=== PATIENT | female | born 1955 | race Caucasian/White ===

== ENCOUNTER 2021-04-13 16:45 | Inpatient (IN) | payer MEDICARE, OTHER ==
[~2021-04-13] VITALS: Ht 165.1 cm; Wt 70.2 kg
[2021-04-13] MEDS ORDERED: BACITRACIN TOPICAL OINT PACKET. TP ONE (18:00)
[2021-04-13] MEDS ORDERED: DIPHTH,PERTUSS(ACELL),TET TOX 0.5 ML DISP.SYRIN. VAX IM ONE (18:00)
--- NOTE | 2021-04-13 18:16 | PHYS DOC ---
Past Medical History Past Surgical History: No Surgical History General Adult EDM: Chief Complaint: MECHANICAL FALL HPI: HPI: Patient is a 65-year-old female who presents to the emergency department complaining of face pain after a trip and fall approximately 1 hour prior to arrival. Patient states [place] she tripped over a piece of metal sticking out of the ground falling and striking her face on the concrete. Patient states she became dazed but does not believe she lost consciousness, patient sister at bedside who witnessed the event reports patient did not lose consciousness. Patient complains of forehead pain, nose pain, upper lip pain. Did not take any pain medication prior to arrival to the emergency department. Reports a 3 out of 10 pain/discomfort. Reports her last tetanus immunization was greater than 5 years ago. Patient denies visual disturbances, syncopal or near syncopal episodes, denies neck pain, denies chest pains or shortness of breath, denies chest palpitations. Patient denies nasal or chest congestion. Patient does report left knee discomfort, denies other injuries to her body, denies other physical complaints or physical concerns. Patient reports she takes lisinopril 10 mg for hypertension, 75 mcg of levothy roxine for hypothyroidism. Review of Systems: Review of Systems: 14 body systems of review of systems have been reviewed. See HPI for pertinent positives and negative responses, otherwise all other systems are negative, no npertinent or noncontributory. Constitutional: Negative except as outlined in HPI above. Skin: Negative except as outlined in HPI above. Eyes: Negative except as outlined in HPI above. HENT: Negative except as outlined in HPI above. Respiratory: Negative except as outlined in HPI above. Cardiovascular: Negative except as outlined in HPI above. GI: Negative except as outlined in HPI above. : Negative except as outlined in HPI above. Musculoskeletal: Negative except as outlined in HPI above. Integument: Negative except as outlined in HPI above. Neurologic: Negative except as outlined in HPI above. Endocrine: Negative except as outlined in HPI above. Lymphatic: Negative except as outlined in HPI above. Psychiatric: Negative except as outlined in HPI above. Heart Score: C/O Chest Pain: No Risk Factors: Risk Factors: DM, Current or recent (<one month) smoker, HTN, HLP, family history of CAD, obesity. Risk Scores: Score 0 - 3: 2.5% MACE over next 6 weeks - Discharge Home Score 4 - 6: 20.3% MACE over next 6 weeks - Admit for Clinical Observation Score 7 - 10: 72.7% MACE over next 6 weeks - Early Invasive Strategies Current Medications: Current Medications Medications (Trade) Dose Ordered Sig/Venkatesh Start Time Stop Time Status Last Admin Dose Admin Bacitracin (Bacitracin Zinc Oint Pkt) 1 pkt 1X ONCE 04/13/21 18:00 04/13/21 18:01 DC 04/13/21 18:00 1 PKT Diphtheria/ Tetanus/Acell Pertussis (Boostrix) 0.5 ml ONCE ONCE 04/13/21 18:00 04/13/21 18:01 DC 04/13/21 18:02 0.5 ML Allergies: Allergies: Allergies Coded Allergies Type Severity Reaction Last Updated Verified No Known Drug Allergies 04/13/21 No Physical Exam: PE: Constitutional: Well developed, well nourished, no acute distress, non-toxic appearance. 65-year-old female holding ice packs to her face otherwise in no apparent distress. HENT: Normocephalic, there is a contusion to the right forehead just superior to brow with abrasion, abrasion with swelling to bridge of nose, bilateral nasal turbinates are swollen, no drainage or bleeding appreciated, the upper lip has abrasion and is swollen, there is a laceration 0.4 mm to the upper lip center, does not cross the vermilion border, no bleeding appreciated, the teeth are not broken, there is no malocclusion, patient is speaking in normal voice tones, no drooling, no trismus, bilateral TMs are intact and within normal limits, no raccoon eyes, no starr's sign. Eyes: Conjunctiva normal, no discharge. PERRLA, satisfactory 6 cardinal eye movements. Neck: Normal range of motion, no stridor. There is no C-spine pain, no pain to the muscular structures of the neck. Cardiovascular: No cyanosis appreciated, distal cap refill less than 2 seconds. Regular rate and rhythm, heart sounds S1-S2. Lungs & Thorax: Patient is in no respiratory distress, lung sounds are clear to auscultation all lung oliva. Abdomen: Nontender, no abnormalities noted. Skin: Warm, dry, no erythema, no rash. See HEENT note for focused skin examination. Back: No tenderness, no deformities. Extremities: No tenderness, no cyanosis, no clubbing, ROM intact, no edema. There is a minor abrasion to the left anterior knee, no swelling or edema, no crepitus appreciated, full passive range of motion of knee joint. Neurologic: Alert and oriented X 3, normal motor function, normal sensory func tion, no focal deficits noted. Psychologic: Affect normal, judgement normal, mood normal. Current Patient Data: Vital Signs: Vital Signs Date Time Temp Pulse Resp B/P (MAP) Pulse Ox O2 Delivery O2 Flow Rate FiO2 04/13/21 17:01 98.0 101 20 184/88 (120) 95 Room Air 98.0 EKG: EKG: [] Radiology/Procedures: Radiology/Procedures: REASON: Fall, facial trauma PROCEDURE: CT HEAD AND MAXILLOFACIAL WO Exam: CT head, maxillofacial and cervical spine INDICATION: Fall, facial trauma TECHNIQUE: Sequential axial images through the head, face and cervical spine were obtained without the administration of IV contrast. Exposure: One or more of the following in the visualized dose reduction techniques were utilized for this examination: 1. Automated exposure control 2. Adjustment of the MA and/or KV according to patient size 3. Use of iterative of reconstructive technique Comparisons: None FINDINGS: Head: Subtle hyperdensity adjacent to the midline falx anteriorly between the frontal lobe seen on series 2 image 14. No focal parenchymal lesion or hemorrhage is identified. There is no midline shift or sulcal effacement. No acute vascular territory infarction is identified. Davidson-white distinction is preserved. The ventricular system is within normal limits without compression hydrocephalus. The basal cisterns are well maintained. Face: The visualized portions of the paranasal sinuses and mastoid air cells are well- pneumatized. Bilateral nasal bone fractures are noted. Extra cranial soft tissue scalp contusion overlying the right frontal region. Globes and intraorbital contents are normal. Cervical spine: Mild reversal of normal cervical lordosis positional. Vertebral body heights are well-maintained. Fracture through the cervical spine is not identified. Multilevel spondylotic change in cervical spine with degenerative disc disease greatest at C4-C5, C5-C6 and C6-C7. Visualized paraspinal soft tissues are unremarkable. IMPRESSION: 1. Trace subdural hematoma along the falx anteriorly between the frontal lobes. No significant mass effect. 2. Extra cranial soft tissue scalp contusion overlying the right frontal region. 3. Bilateral nasal bone fractures. 4. Negative CT C-spine for acute traumatic injury. FOR INTERNAL CODING PURPOSES Critical result: Findings discussed with AKASH MARTIN APRN at 04/13/2021 6:21 PM. RESULT CODE: (C) Electronically signed by: Mendez Aviles MD (04/13/2021 6:23 PM) [facility] Course & Med Decision Making: Course & Med Decision Making Pertinent Labs and Imaging studies reviewed. (See chart for details) 65-year-old female, vital signs reviewed, presents to the emergency department concerning trip and fall hitting her face on the concrete. Per witnesses naheed ent did not lose consciousness however does not remember certain events after striking her face on the ground. Physical examination concerning for closed head injury, fractures of facial bones, will order CT head, C-spine, maxillofacial bones, ice pack to face, will bring patient's tetanus immunization up-to-date today in the emergency department, will cleanse abrasions and apply bacitracin ointment. CT imaging interpreted by house radiologist concerning for subdural hematoma of the frontal lobes without mass-effect, soft tissue scalp contusion of the right frontal region, bilateral nasal bone fractures, is negative for C-spine acute injury. Discussed findings with patient, recommended admission to the hospital for hospitalist and neurosurgical consult, patient is amenable to this planning. Patient continues to 3 out of 10 pain, denies need for pain medication, discussed recommendations to suture lip laceration, patient has refused this saying it will heal on its own. Called and discussed patient case and ED work-up with Dr. Hernandez nurse practitioner Na who recommends patient be admitted to the ICU, every 4 hours neuro checks, repeat CT in a.m., will consult for admission under hospitalist. Called and discussed patient case and ED work-up with inpatient management physician Dr. Kinsey who agrees patient case warrants admission to the hospital, reviewed neurosurgery recommendations, patient is currently awaiting ICU room assignment from smokehouse operator, patient remains neurovascular intact, alert and oriented x3, vital signs are within normal limits. Dragon Disclaimer: Dragon Disclaimer: This electronic medical record was generated, in whole or in part, using a voice recognition dictation system. Departure Departure Impression: Primary Impression: Subdural hematoma Additional Impressions: Closed head injury Qualified Codes: S09.90XA - Unspecified injury of head, initial encounter Nasal bone fracture Qualified Codes: S02.2XXA - Fracture of nasal bones, initial encounter for closed fracture Forehead contusion Qualified Codes: S00.83XA - Contusion of other part of head, initial encounter Nasal contusion Qualified Codes: S00.33XA - Contusion of nose, initial encounter Facial abrasion Qualified Codes: S00.81XA - Abrasion of other part of head, initial encounter Laceration of upper lip with complication Qualified Codes: S01.511A - Laceration without foreign body of lip, initial encounter Disposition: 09 ADMITTED INPATIENT Admitting Physician: LINDA (Admit to Dr. Kinsey, neurosurgery Dr. Norwood consult.) Condition: GUARDED MANDIEAKASH CHAVEZ Omari MURILLO Apr 13, 2021 18:16
--- NOTE | 2021-04-13 18:25 | RAD ---
Exam: CT head, maxillofacial and cervical spine INDICATION: Fall, facial trauma TECHNIQUE: Sequential axial images through the head, face and cervical spine were obtained without th e administration of IV contrast. Exposure: One or more of the following in the visualized dose reduction techniques were utilized for this examination: 1. Automated exposure control 2. Adjustment of the MA and/or KV according to patient size 3. Use of iterative of reconstructive technique Comparisons: None FINDINGS: Head: Subtle hyperdensity adjacent to the midline falx anteriorly between the frontal lobe seen on series 2 image 14. No focal parenchymal lesion or hemorrhage is identified. There is no midline shift or sulc al effacement. No acute vascular territory infarction is identified. Davidson-white distinction is preserved. The ventricular system is within normal limits without compression hydrocephalus. The basal cisterns are well maintained. Face: The visualized portions of the paranasal sinuses and mastoid air cells are well-pneumatized. Bilatera l nasal bone fractures are noted. Extra cranial soft tissue scalp contusion overlying the right front al region. Globes and intraorbital contents are normal. Cervical spine: Mild reversal of normal cervical lordosis positional. Vertebral body heights are well-maintained. Fracture through the cervical spine is not identified. Multilevel spondylotic change in cervical spine with degenerative disc disease greatest at C4-C5, C5- C6 and C6-C7. Visualized paraspinal soft tissues are unremarkable. IMPRESSION: 1. Trace subdural hematoma along the falx anteriorly between the frontal lobes. No significant mass effect. 2. Extra cranial soft tissue scalp contusion overlying the right frontal region. 3. Bilateral nasal bone fractures. 4. Negative CT C-spine for acute traumatic injury. FOR INTERNAL CODING PURPOSES Critical result: Findings discussed with AKASH MARTIN APRN at 04/13/2021 6:21 PM. RESULT CODE: (C) Electronically signed by: Mendez Aviles MD (04/13/2021 6:23 PM) [facility]
[2021-04-13] MEDS ORDERED: ACETAMINOPHEN 325 MG TABLET. PO PRN (19:00)
[2021-04-13 19:13] LABS: BASO % 0 % (0-3); EOS % 0 % (0-3); HEMATOCRIT 42.9 % (36.0-47.0); HEMOGLOBIN 14.1 g/dL (12.0-15.5); LYMPH # 1.6 x10^3/uL (1.0-4.8); LYMPH % 13 % (24-48); MEAN CORPUSCULAR HEMOGLOBIN 30 pg (25-35); MEAN CORPUSCULAR HGB CONC 33 g/dL (31-37); MEAN CORPUSCULAR VOLUME 92 fL (79-100); MONO # 0.4 x10^3/uL (0.0-1.1); MONO % 4 % (0-9); NEUT % 83 % (31-73); PLATELET COUNT 281 x10^3/uL (140-400); RED BLOOD COUNT 4.65 x10^6/uL (3.50-5.40); WHITE BLOOD COUNT 12.1 x10^3/uL (4.0-11.0)
[2021-04-13 19:23] LABS: CALCIUM 9.6 mg/dL (8.5-10.1); CREATININE 0.8 mg/dL (0.6-1.0); POTASSIUM 3.8 mmol/L (3.5-5.1); PROTHROMBIN TIME PATIENT 12.5 SEC (11.7-14.0)
[2021-04-13 19:29] LABS: ALBUMIN 4.7 g/dL (3.4-5.0); ALBUMIN/GLOBULIN RATIO 1.4 (1.0-1.7); TOTAL BILIRUBIN 0.4 mg/dL (0.2-1.0); TOTAL PROTEIN 8.1 g/dL (6.4-8.2)
[2021-04-13] MEDS ORDERED: MORPHINE SULFATE 4 MG/ML INJ. IVP ONE (20:15)
[2021-04-13] MEDS ORDERED: ONDANSETRON PF 4 MG/2 ML VIAL. IVP ONE (20:15)
[2021-04-13 21:45] VITALS: BP 117/64
[2021-04-13] MEDS ORDERED: LISI10TA16 PO (21:49)
[2021-04-13] MEDS ORDERED: LEVO75TA5 PO (21:49)
[2021-04-13] MEDS ORDERED: PROG200C10 PO (21:49)
[2021-04-13 22:00] VITALS: BP 132/72
[2021-04-13 22:15] VITALS: BP 110/69
[2021-04-13] MEDS: MORPHINE SULFATE 2 MG/ML INJ. IV PRN (22:28)
[2021-04-13 22:30] VITALS: BP 117/69
[2021-04-13 23:00] VITALS: BP 100/55
--- NOTE | 2021-04-13 23:19 | NUR ---
PT ADMITTED TO [facility] 112 FOR SUBDURAL HEMATOMA. ADMITTED TO DR REY, NEUROSURGERY- MADISYN NEURO PROPERTY ADJUSTER AWARE OF PT ADMISSION. PT S/P FALL AT POST OFFICE, SAYS THAT SHE LOST BRIEF CONSCIOUSNESS BUT WOKE UP AND JUST SLIGHTLY DISORIENTED. UPON ARRIVAL TO ICU, PT A&OX4, AMBULATED INDEPENDENTLY TO BED. EXTENSIVE BRUISING/SWELLING NOTED TO FACIAL REGION, PT STATES 4/10 PAIN. MORPHINE IV GIVEN WITH IMPROVEMENT. ASSESSMENT/ADMISSION COMPLETED, HOME MEDS ENTERED- EXPLAINED TO PT WILL MONITOR HER OVERNIGHT AND REPEAT HEAD CT IN THE AM. SHE IS CURRENTLY RESTING PEACEFULLY, ALL VSS.
[2021-04-13 23:47] VITALS: BP 89/48
[2021-04-14] VITALS (9 sets, daily range): BP systolic 87–134; BP diastolic 52–74
[2021-04-14] MEDS: MORPHINE SULFATE 2 MG/ML INJ. IV PRN (00:30)
[2021-04-14] MEDS ORDERED: MUPIROCIN 2 % OINTMENT 22GM TUBE. TP PRN (00:45)
[2021-04-14] MEDS ORDERED: hydrALAZINE 20 MG/ML VIAL. IVP PRN (07:15)
[2021-04-14] MEDS ORDERED: ACETAMINOPHEN 325 MG TABLET. PO PRN (07:15)
[2021-04-14] MEDS ORDERED: traMADol 50 MG TABLET PO PRN (07:15)
[2021-04-14] MEDS ORDERED: fentaNYL PF VIAL 100 MCG/2 ML VIAL IVP PRN (07:15)
[2021-04-14] MEDS ORDERED: ONDANSETRON PF 4 MG/2 ML VIAL. IVP PRN (07:15)
--- NOTE | 2021-04-14 07:16 | PDOC1 ---
History and Physical Date of Admission Date of Admission DATE: 04/14/21 TIME: 07:08 Identification/Chief Complaint Chief Complaint Fall Source Source: Caregiver, Patient History of Present Illness History of Present Illness Ms Miguel is a 65yo female with PMHx HTN, hypothyroidism who comes into the ED via private vehicle on 04/13/2021 after tripping over a piece of metal on the sidewalk in front of a post office striking her head on the concrete. She did lose consciousness and was dazed, was accompanied by her sister, who she called after the episode. She was caring her person when handling a package of the other and notes for at least 30 min she was confused after the episode doesn't know how long she lost consciousness. Pain initially was 3/10, c/o scalp, nasal and facial pain. No numbness or tingling. No loss of motor function. No cardiac history. She had been taking aspirin until 3 days prior to coming to the ED because she recently read without history of CAD there is no benefit in a spirin. 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 WBC 12.1, Hb 14, platelets 281, NA 142, K3.8, BUN 22, CR 0.8, glucose 107, albumin 4.7, LFTs within normal laboratory limits, INR 0.9, PTT 29. CT cervical spine no acute abnormalities, CT head with bilateral nasal bone fractures and right frontal extracranial scalp contusion as well as trace chew bdural hematoma between bilateral frontal lobes no mass-effect. Admitted to ICU for further care Past Medical History Cardiovascular: HTN Endocrine: Hypothyroidism Past Surgical History Past Surgical History: No pertinent history Family History Family History: Hypertension Social History Smoke: No ALCOHOL: none Drugs: None Current Problem List Problem List Problems Medical Problems: (1) Closed head injury Status: Acute (2) Facial abrasion Status: Acute (3) Forehead contusion Status: Acute (4) Laceration of upper lip with complication Status: Acute (5) Nasal bone fracture Status: Acute (6) Nasal contusion Status: Acute (7) Subdural hematoma Status: Acute Current Medications Current Medications Current Medications Diphtheria/ Tetanus/Acell Pertussis (Boostrix) 0.5 ml ONCE ONCE VAX IM Last administered on 04/13/21at 18:02; Start 04/13/21 at 18:00; Stop 04/13/21 at 18:01; Status DC Bacitracin (Bacitracin Zinc Oint Pkt) 1 pkt 1X ONCE TP Last administered on 04/13/21at 18:00; Start 04/13/21 at 18:00; Stop 04/13/21 at 18:01; Status DC Acetaminophen (Tylenol) 650 mg PRN Q4HRS PRN PO FEVER > 100.3'F Last administered on 04/14/21at 06:16; Start 04/13/21 at 19:00; Stop 04/14/21 at 18:59 Ondansetron HCl (Zofran) 4 mg 1X ONCE IVP Last administered on 04/13/21at 20:13; Start 04/13/21 at 20:15; Stop 04/13/21 at 20:16; Status DC Morphine Sulfate (Morphine Sulfate) 4 mg 1X ONCE IVP Last administered on 03/21 07/08at 20:13; Start 04/13/21 at 20:15; Stop 04/13/21 at 20:16; Status DC Morphine Sulfate (Morphine Sulfate) 2 mg PRN Q2HR PRN IV SEVERE PAIN 7-10 Last administered on 04/14/21at 00:30; Start 04/13/21 at 22:00 Mupirocin (Bactroban) 1 alex PRN BID PRN TP INFECTION; Start 04/14/21 at 00:45 Active Scripts Active Reported Progesterone (Progesterone,Micronized) 200 Mg Capsule 1 Cap PO QHS 30 Days Lisinopril 10 Mg Tablet 1 Tab PO DAILY Levothyroxine Sodium 75 Mcg Tablet 1 Tab PO DAILY Allergies Allergies: Coded Allergies: No Known Drug Allergies (Unverified , 04/13/21) ROS General: YES: Fatigue, Malaise; No: Chills, Night Sweats, Appetite, Other PSYCHOLOGICAL ROS: YES: Disorientation; No: Anxiety, Behavioral Disorder, Concentration difficultie, Decreased libido, Depression, Hallucinations, Hostility, Irritablity, Memory difficulties, Mood Swings, Obsessive thoughts, Physical abuse, Sexual abuse, Sleep disturbances, Suicidal ideation, Other Eyes: Yes Eye Pain; No Blurry vision, No Decreased vision, No Double vision, No Dry eyes, No Excessive tearing, No Itchy Eyes, No Loss of vision, No Photophobia, No Scotomata, No Uses contacts, No Uses glasses, No Other HEENT: YES: Heacaches, Sinus pain, Epistaxis; No: Visual Changes, Hearing change, Nasal congestion, Nasal discharge, Oral lesions, Sore Throat, Sneezing, Snoring, Tinnitus, Vertigo, Vocal changes, Other ALLERGY AND IMMUNOLOGY: No: Hives, Insect Bite Sensitivity, Itchy/Watery Eyes, Nasal Congestion, Post Nasal Drip, Seasonal Allergies, Other Hematological and Lymphatic: No: Bleeding Problems, Blood Clots, Blood Transfusions, Brusing, Night Sweats, Pallor, Swollen Lymph Nodes, Other ENDOCRINE: No: Breast Changes, Galactorrhea, Hair Pattern Changes, Hot Flashes, Malaise/lethargy, Mood Swings, Palpitations, Polydipsia/polyuria, Skin Changes, Temperature Intolerance, Unexpected Weight Changes, Other Breast: No New/Changing Breast Lumps, No Nipple changes, No Nipple discharge, No Other Respiratory: No: Cough, Hemoptysis, Orthopnea, Pleuritic Pain, Shortness of breath, SOB with excertion, Sputum Changes, Stridor, Tachypnea, Wheezing, Other Cardiovascular: No Chest Pain, No Palpitations, No Orthopnea, No Paroxysmal Noc. Dyspnea, No Edema, No Lt Headedness, No Other Gastrointestinal: No Nausea, No Vomiting, No Abdominal Pain, No Diarrhea, No Constipation, No Melena, No Hematochezia, No Other Genitourinary: No Dysuria, No Frequency, No Incontinence, No Hematuria, No Retention, No Discharge, No Urgency, No Pain, No Flank Pain, No Other, No , No , No , No , No , No , No Musculoskeletal: No Gait Disturbance, No Joint Pain, No Joint Stiffness, No Joint Swelling, No Muscle Pain, No Muscular Weakness, No Pain In:, No Swelling In:, No Other Neurological: No Behavorial Changes, No Bowel/Bladder ControlChng, No Confusion, No Dizziness, No Gait Disturbance, No Headaches, No Impaired Coord/balance, No Memory Loss, No Numbness/Tingling, No Seizures, No Speech Problems, No Tremors, No Visual Changes, No Weakness, No Other Skin: No Dry Skin, No Eczema, No Hair Changes, No Lumps, No Mole Changes, No Mottling, No Nail Changes, No Pruritus, No Rash, No Skin Lesion Changes, No Other, No Acne Physical Exam General: Alert, Oriented X3, Cooperative, mild distress HEENT: PERRLA, EOMI, Mucous membr. moist/pink, Other (Right frontal scalp hematoma. Bilateral infraorbital ecchymoses swollen nasal bone mild displacement to right. Right-sided chin abrasion.) Lungs: Clear to auscultation, Normal air movement Heart: S1S2, RRR, no thrills, no rubs, no gallops, no murmurs Abdomen: Normal bowel sounds, Soft, No tenderness, No hepatosplenomegaly, No masses Rectal Exam: not examined Extremities: No clubbing, No cyanosis, No edema, Normal pulses, Other (left 5th finger pain, swelling) Skin: Other (Right frontal scalp hematoma. Bilateral infraorbital ecchymoses swollen nasal bone mild displacement to right. Right-sided chin abrasion.) Neuro: Normal gait, Normal speech, Strength at 5/5 X4 ext, Normal tone, Sensation intact, Cranial nerves 3-12 NL, Reflexes 2+ Vitals Vitals Vital Signs Date Time Temp Pulse Resp B/P (MAP) Pulse Ox O2 Delivery O2 Flow Rate FiO2 04/14/21 06:00 75 20 118/63 (81) 96 Room Air 04/14/21 04:00 98.5 98.5 Labs Labs Laboratory Tests Test 04/13/21 19:00 White Blood Count 12.1 x10^3/uL (4.0-11.0) Red Blood Count 4.65 x10^6/uL (3.50-5.40) Hemoglobin 14.1 g/dL (12.0-15.5) Hematocrit 42.9 % (36.0-47.0) Mean Corpuscular Volume 92 fL (79-100) Mean Corpuscular Hemoglobin 30 pg (25-35) Mean Corpuscular Hemoglobin Concent 33 g/dL (31-37) Red Cell Distribution Width 13.0 % (11.5-14.5) Platelet Count 281 x10^3/uL (140-400) Neutrophils (%) (Auto) 83 % (31-73) Lymphocytes (%) (Auto) 13 % (24-48) Monocytes (%) (Auto) 4 % (0-9) Eosinophils (%) (Auto) 0 % (0-3) Basophils (%) (Auto) 0 % (0-3) Neutrophils # (Auto) 10.0 x10^3/uL (1.8-7.7) Lymphocytes # (Auto) 1.6 x10^3/uL (1.0-4.8) Monocytes # (Auto) 0.4 x10^3/uL (0.0-1.1) Eosinophils # (Auto) 0.0 x10^3/uL (0.0-0.7) Basophils # (Auto) 0.0 x10^3/uL (0.0-0.2) Prothrombin Time 12.5 SEC (11.7-14.0) Prothromb Time International Ratio 0.9 (0.8-1.1) Activated Partial Thromboplast Time 29 SEC (24-38) Sodium Level 142 mmol/L (136-145) Potassium Level 3.8 mmol/L (3.5-5.1) Chloride Level 103 mmol/L (98-107) Carbon Dioxide Level 25 mmol/L (21-32) Anion Gap 14 (6-14) Blood Urea Nitrogen 22 mg/dL (7-20) Creatinine 0.8 mg/dL (0.6-1.0) Estimated GFR (Cockcroft-Gault) 72.0 BUN/Creatinine Ratio 28 (6-20) Glucose Level 107 mg/dL (70-99) Calcium Level 9.6 mg/dL (8.5-10.1) Total Bilirubin 0.4 mg/dL (0.2-1.0) Aspartate Amino Transf (AST/SGOT) 15 U/L (15-37) Alanine Aminotransferase (ALT/SGPT) 21 U/L (14-59) Alkaline Phosphatase 63 U/L (46-116) Total Protein 8.1 g/dL (6.4-8.2) Albumin 4.7 g/dL (3.4-5.0) Albumin/Globulin Ratio 1.4 (1.0-1.7) Laboratory Tests Test 04/13/21 19:00 White Blood Count 12.1 x10^3/uL (4.0-11.0) Red Blood Count 4.65 x10^6/uL (3.50-5.40) Hemoglobin 14.1 g/dL (12.0-15.5) Hematocrit 42.9 % (36.0-47.0) Mean Corpuscular Volume 92 fL (79-100) Mean Corpuscular Hemoglobin 30 pg (25-35) Mean Corpuscular Hemoglobin Concent 33 g/dL (31-37) Red Cell Distribution Width 13.0 % (11.5-14.5) Platelet Count 281 x10^3/uL (140-400) Neutrophils (%) (Auto) 83 % (31-73) Lymphocytes (%) (Auto) 13 % (24-48) Monocytes (%) (Auto) 4 % (0-9) Eosinophils (%) (Auto) 0 % (0-3) Basophils (%) (Auto) 0 % (0-3) Neutrophils # (Auto) 10.0 x10^3/uL (1.8-7.7) Lymphocytes # (Auto) 1.6 x10^3/uL (1.0-4.8) Monocytes # (Auto) 0.4 x10^3/uL (0.0-1.1) Eosinophils # (Auto) 0.0 x10^3/uL (0.0-0.7) Basophils # (Auto) 0.0 x10^3/uL (0.0-0.2) Prothrombin Time 12.5 SEC (11.7-14.0) Prothromb Time International Ratio 0.9 (0.8-1.1) Activated Partial Thromboplast Time 29 SEC (24-38) Sodium Level 142 mmol/L (136-145) Potassium Level 3.8 mmol/L (3.5-5.1) Chloride Level 103 mmol/L (98-107) Carbon Dioxide Level 25 mmol/L (21-32) Anion Gap 14 (6-14) Blood Urea Nitrogen 22 mg/dL (7-20) Creatinine 0.8 mg/dL (0.6-1.0) Estimated GFR (Cockcroft-Gault) 72.0 BUN/Creatinine Ratio 28 (6-20) Glucose Level 107 mg/dL (70-99) Calcium Level 9.6 mg/dL (8.5-10.1) Total Bilirubin 0.4 mg/dL (0.2-1.0) Aspartate Amino Transf (AST/SGOT) 15 U/L (15-37) Alanine Aminotransferase (ALT/SGPT) 21 U/L (14-59) Alkaline Phosphatase 63 U/L (46-116) Total Protein 8.1 g/dL (6.4-8.2) Albumin 4.7 g/dL (3.4-5.0) Albumin/Globulin Ratio 1.4 (1.0-1.7) Images Images CT head/neck: Head: Subtle hyperdensity adjacent to the midline falx anteriorly between the frontal lobe seen on series 2 image 14. No focal parenchymal lesion or hemorrhage is identified. There is no midline shift or sulcal effacement. No acute vascular territory infarction is identified. Davidson-white distinction is preserved. The ventricular system is within normal limits without compression hydrocephalus. The basal cisterns are well maintained. Face: The visualized portions of the paranasal sinuses and mastoid air cells are well-pneumatized. Bilateral nasal bone fractures are noted. Extra cranial soft tissue scalp contusion overlying the right frontal region. Globes and intraorbital contents are normal. Cervical spine: Mild reversal of normal cervical lordosis positional. Vertebral body heights are well-maintained. Fracture through the cervical spine is not identified. Multilevel spondylotic change in cervical spine with degenerative disc disease greatest at C4-C5, C5-C6 and C6-C7. Visualized paraspinal soft tissues are unremarkable. IMPRESSION: 1. Trace subdural hematoma along the falx anteriorly between the frontal lobes. No significant mass effect. 2. Extra cranial soft tissue scalp contusion overlying the right frontal region. 3. Bilateral nasal bone fractures. 4. Negative CT C-spine for acute traumatic injury. VTE Prophylaxis Ordered VTE Prophylaxis Devices: Yes VTE Pharmacological Prophylaxi: Contraindicated Assessment/Plan Assessment/Plan Subdural hematoma - due to traumatic fall. No concern for cardiac etiology of her syncope. Small no midline shift. Neurosurgery consulted. Fall - will test gait. No cardiac history or telemetry abnormalities, this is clearly an accidental fall. Concussion - with loss of consciousness and retrograde amnesia, prolonged confusion state. Nasal bone fracture -visibly clears displaced though CT without significant findings. Will have outpatient ENT referral Forehead contusion -ice to area for pain Facial abrasion - local wound care Laceration of upper lip - local care Hypothyroidism - cont levothyroxine Hypertension - cont lisinopril FEN - regular diet PPX - SCDs FULL CODE Dispo - ICU for q4hr neuro checks. Will repeat CT head Justifications for Admission Other Justification IRAJ HERNANDEZ MD Apr 14, 2021 07:16
[2021-04-14] MEDS ORDERED: LEVOTHYROXINE 75 MCG TABLET PO SCH (08:00)
[2021-04-14] MEDS ORDERED: POLYETHYLENE GLYCOL 3350 17 GM PACKET. PO SCH (09:00)
[2021-04-14] MEDS ORDERED: LISINOPRIL 10 MG TABLET PO SCH (09:00)
--- NOTE | 2021-04-14 11:54 | PDOC ---
Provider Note Date of Service: DATE: 04/14/21 TIME: 11:51 Provider Note patient seen and examined consulted for SDH c/o mild headache normal neuro exam, echymosis in face, eyes imaging reviewed-Trace subdural hematoma along the falx anteriorly between the frontal lobes. No significant mass effect. ok to dc home, no driving will arrange for follow up CT in a week Justifications for Admission Other Justification ABIDA SUTTON MD Apr 14, 2021 11:54
--- NOTE | 2021-04-14 13:01 | NUR ---
Discharge Note: [facility] Discharge instructions and discharge home medications reviewed with Patient and a copy given. All questions have been answered and understanding verbalized. The following instructions and handouts were given: For Nasal fracture [facility] surgery - Dr. Espinosa or Kike [address], [address] [place] [address] P: Dr. Falk will contact patient for follow up CT scan. No driving until after follow up CT scan. Return to work 04/30/21 Light lifting greater than 10lbs. Full duty 05/14/21. For post-concussion syndrome Dr. Paul Singh [address] [place] [address] Education pertaining to SDH was discussed and given to patient. Discontinued lines and drains: 20g left UA with tip intact. Patient discharged to home with self care. Daughter drove patient from [facility] facility.
--- NOTE | 2021-04-14 14:23 | PDOC3 ---
Discharge Summary Visit Information Date of Admission: Apr 13, 2021 Date of Discharge: Apr 14, 2021 Admitting Diagnosis: Fall, subdural hematoma Final Diagnosis Problems Medical Problems: (1) Closed head injury Status: Acute (2) Facial abrasion Status: Acute (3) Forehead contusion Status: Acute (4) Laceration of upper lip with complication Status: Acute (5) Nasal bone fracture Status: Acute (6) Nasal contusion Status: Acute (7) Subdural hematoma Status: Acute Brief Hospital Course Allergies Allergies Coded Allergies Type Severity Reaction Last Updated Verified No Known Drug Allergies 04/13/21 No Vital Signs Vital Signs Date Time Temp Pulse Resp B/P (MAP) Pulse Ox O2 Delivery O2 Flow Rate FiO2 04/14/21 12:10 Room Air 04/14/21 11:19 73 18 99/66 (77) 98 04/14/21 08:00 98.6 98.6 Lab Results Laboratory Tests Test 04/13/21 19:00 White Blood Count 12.1 x10^3/uL (4.0-11.0) Red Blood Count 4.65 x10^6/uL (3.50-5.40) Hemoglobin 14.1 g/dL (12.0-15.5) Hematocrit 42.9 % (36.0-47.0) Mean Corpuscular Volume 92 fL (79-100) Mean Corpuscular Hemoglobin 30 pg (25-35) Mean Corpuscular Hemoglobin Concent 33 g/dL (31-37) Red Cell Distribution Width 13.0 % (11.5-14.5) Platelet Count 281 x10^3/uL (140-400) Neutrophils (%) (Auto) 83 % (31-73) Lymphocytes (%) (Auto) 13 % (24-48) Monocytes (%) (Auto) 4 % (0-9) Eosinophils (%) (Auto) 0 % (0-3) Basophils (%) (Auto) 0 % (0-3) Neutrophils # (Auto) 10.0 x10^3/uL (1.8-7.7) Lymphocytes # (Auto) 1.6 x10^3/uL (1.0-4.8) Monocytes # (Auto) 0.4 x10^3/uL (0.0-1.1) Eosinophils # (Auto) 0.0 x10^3/uL (0.0-0.7) Basophils # (Auto) 0.0 x10^3/uL (0.0-0.2) Prothrombin Time 12.5 SEC (11.7-14.0) Prothromb Time International Ratio 0.9 (0.8-1.1) Activated Partial Thromboplast Time 29 SEC (24-38) Sodium Level 142 mmol/L (136-145) Potassium Level 3.8 mmol/L (3.5-5.1) Chloride Level 103 mmol/L (98-107) Carbon Dioxide Level 25 mmol/L (21-32) Anion Gap 14 (6-14) Blood Urea Nitrogen 22 mg/dL (7-20) Creatinine 0.8 mg/dL (0.6-1.0) Estimated GFR (Cockcroft-Gault) 72.0 BUN/Creatinine Ratio 28 (6-20) Glucose Level 107 mg/dL (70-99) Calcium Level 9.6 mg/dL (8.5-10.1) Total Bilirubin 0.4 mg/dL (0.2-1.0) Aspartate Amino Transf (AST/SGOT) 15 U/L (15-37) Alanine Aminotransferase (ALT/SGPT) 21 U/L (14-59) Alkaline Phosphatase 63 U/L (46-116) Total Protein 8.1 g/dL (6.4-8.2) Albumin 4.7 g/dL (3.4-5.0) Albumin/Globulin Ratio 1.4 (1.0-1.7) Laboratory Tests Test 04/13/21 19:00 White Blood Count 12.1 x10^3/uL (4.0-11.0) Red Blood Count 4.65 x10^6/uL (3.50-5.40) Hemoglobin 14.1 g/dL (12.0-15.5) Hematocrit 42.9 % (36.0-47.0) Mean Corpuscular Volume 92 fL (79-100) Mean Corpuscular Hemoglobin 30 pg (25-35) Mean Corpuscular Hemoglobin Concent 33 g/dL (31-37) Red Cell Distribution Width 13.0 % (11.5-14.5) Platelet Count 281 x10^3/uL (140-400) Neutrophils (%) (Auto) 83 % (31-73) Lymphocytes (%) (Auto) 13 % (24-48) Monocytes (%) (Auto) 4 % (0-9) Eosinophils (%) (Auto) 0 % (0-3) Basophils (%) (Auto) 0 % (0-3) Neutrophils # (Auto) 10.0 x10^3/uL (1.8-7.7) Lymphocytes # (Auto) 1.6 x10^3/uL (1.0-4.8) Monocytes # (Auto) 0.4 x10^3/uL (0.0-1.1) Eosinophils # (Auto) 0.0 x10^3/uL (0.0-0.7) Basophils # (Auto) 0.0 x10^3/uL (0.0-0.2) Prothrombin Time 12.5 SEC (11.7-14.0) Prothromb Time International Ratio 0.9 (0.8-1.1) Activated Partial Thromboplast Time 29 SEC (24-38) Sodium Level 142 mmol/L (136-145) Potassium Level 3.8 mmol/L (3.5-5.1) Chloride Level 103 mmol/L (98-107) Carbon Dioxide Level 25 mmol/L (21-32) Anion Gap 14 (6-14) Blood Urea Nitrogen 22 mg/dL (7-20) Creatinine 0.8 mg/dL (0.6-1.0) Estimated GFR (Cockcroft-Gault) 72.0 BUN/Creatinine Ratio 28 (6-20) Glucose Level 107 mg/dL (70-99) Calcium Level 9.6 mg/dL (8.5-10.1) Total Bilirubin 0.4 mg/dL (0.2-1.0) Aspartate Amino Transf (AST/SGOT) 15 U/L (15-37) Alanine Aminotransferase (ALT/SGPT) 21 U/L (14-59) Alkaline Phosphatase 63 U/L (46-116) Total Protein 8.1 g/dL (6.4-8.2) Albumin 4.7 g/dL (3.4-5.0) Albumin/Globulin Ratio 1.4 (1.0-1.7) Brief Hospital Course Ms Miguel is a 65yo female with PMHx HTN, hypothyroidism who comes into the ED via private vehicle on 04/13/2021 after tripping over a piece of metal on the sidewalk in front of a post office striking her head on the concrete. She did lose consciousness and was dazed, was accompanied by her sister, who she called after the episode. She was caring her person when handling a package of the other and notes for at least 30 min she was confused after the episode doesn't know how long she lost consciousness. Pain initially was 3/10, c/o scalp, nasal and facial pain. No numbness or tingling. No loss of motor function. No cardiac history. She had been taking aspirin until 3 days prior to coming to the ED because she recently read without history of CAD there is no benefit in aspirin. 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 WBC 12.1, Hb 14, platelets 281, NA 142, K3.8, BUN 22, CR 0.8, glucose 107, albumin 4.7, LFTs within normal laboratory limits, INR 0.9, PTT 29. CT cervical spine no acute abnormalities, CT head with bilateral nasal bone fractures and right frontal extracranial scalp contusion as well as trace subdural hematoma between bilateral frontal lobes no mass-effect. Admitted to ICU for further care Consults: None neurosurgery. And gait testing with physical therapy and noted some left knee instability and patient did note she may have fallen onto it. Offered radiograph of left fifth finger and outpatient referral to orthopedics for her left knee she prefers to go for outpatient physical therapy. Repeat CT head imaging reviewed with no changed in trrace subdural hematoma along the falx anteriorly between the frontal lobes. No significant mass effect. no driving. 2 weeks off work with light duty for 2 weeks upon return. Neurosurgery will arrange for follow up CT in a week Repeat physical examination HEENT: Head normocephalic, atraumatic. NECK: Supple LUNGS: Clear to auscultation. HEART: RRR, S1, S2 present, pulses intact ABDOMEN: Soft, positive bowel sounds. EXTREMITIES: Left knee with infrapatellar bruising, some instability on ambulation. (left 5th finger pain, swelling) Skin: Other (Right frontal scalp hematoma. Bilateral infraorbital ecchymoses swollen nasal bone mild displacement to right. Right-sided chin abrasion.) Neuro: Normal gait, Normal speech, Strength at 5/5 X4 ext, Normal tone, Sensation intact, Cranial nerves 3-12 NL, Reflexes 2+ Problem list: Subdural hematoma - due to traumatic fall. No concern for cardiac etiology of her syncope. Small no midline shift. Neurosurgery consulted. Fall - will test gait. No cardiac history or telemetry abnormalities, this is clearly an accidental fall. Concussion - with loss of consciousness and retrograde amnesia, prolonged confusion state. Nasal bone fracture -visibly clears displaced though CT without significant findings. Will have outpatient ENT referral Forehead contusion -ice to area for pain Facial abrasion - local wound care Laceration of upper lip - local care Hypothyroidism - cont levothyroxine Hypertension - cont lisinopril Greater than 135 minutes spent on same day admit and d/c Discharge Information Condition at Discharge: Improved Follow Up: Weeks (2) Disposition/Orders: D/C to Home Scheduled Levothyroxine Sodium (Levothyroxine Sodium) 75 Mcg Tablet, 1 TAB PO DAILY for hypothyroidism, #30 Ref 5 (Reported) Entered as Reported by: JONATHAN HARTLEY on 04/13/212148 Last Taken: 75 on 04/13/21 Last Action: Continued on 04/14/21710 by IRAJ HERNANDEZ MD Lisinopril (Lisinopril) 10 Mg Tablet, 1 TAB PO DAILY for HTN, #30 Ref 5 (Reported) Entered as Reported by: JONATHAN HARTLEY on 04/13/212148 Last Taken: Unknown Dose on 04/13/21 Last Action: Continued on 04/14/21710 by IRAJ HERNANDEZ MD Progesterone,Micronized (Progesterone) 200 Mg Capsule, 1 CAP PO QHS for . for 30 Days, #30 Ref 0 (Reported) Entered as Reported by: JONATHAN HARTLEY on 04/13/212148 Last Taken: UNKNOWN on Unknown Date & Time Last Action: New Order on 04/13/212148 by JONATHAN HARTLEY Justicifation of Admission Dx: Justifications for Admission: Justification of Admission Dx: Yes IRAJ HERNANDEZ MD Apr 14, 2021 14:23
--- NOTE | 2021-04-14 16:34 | RAD ---
CT head without contrast dated 04/14/2021 4:28 PM Comparison: 04/13/2021 CLINICAL INDICATION: Follow-up subdural hematoma. TECHNIQUE: Contiguous axial imaging of the head was performed from skull base to vertex. One or more of the following individualized dose reduction techniques were utilized for this examinat ion: 1. Automated exposure control 2. Adjustment of the mA and/or kV according to patient size 3. Use of iterative reconstruction technique. FINDINGS: Ventricles and sulci are stable. No midline shift or mass effect. There is some mild increased densit y thickening of the anterior falx, similar to somewhat improved from recent exam. No new extra-axial collection. No intraventricular hemorrhage or subarachnoid hemorrhage. No new areas of altered brain attenuation. There is a focal scalp hematoma at the right frontal region, unchanged. No apparent calvarial abnorma lity. Paranasal sinuses and mastoid air cells are clear. IMPRESSION: 1. Small subdural hematoma along the anterior falx is similar to slightly improved from prior study. No new hemorrhage or mass effect. 2. Right frontal scalp hematoma, unchanged. Electronically signed by: Kleber Cho MD (04/14/2021 4:31 PM) [facility]
[2021-04-14] MEDS ORDERED: PSYLLIUM HUSK (SUGAR FREE) 1 PKT PACKET PO SCH (21:00)
== END 2021-04-14 12:30 | disposition home or self-care (01) | DRG 84 ==
LOC: ER 16:45 → 1 WEST ICU 18:40
PROVIDERS: ADMIT Internal Medicine; ATTEND Internal Medicine
DX: S06.5X9A Traumatic subdural hemorrhage with loss of consciousness of unspecified duration, initial encounter (principal); R79.1 Abnormal coagulation profile; E03.9 Hypothyroidism, unspecified; I10 Essential (primary) hypertension; S02.2XXA Fracture of nasal bones, initial encounter for closed fracture; S01.511A Laceration without foreign body of lip, initial encounter; W22.09XA Striking against other stationary object, initial encounter; Y93.01 Activity, walking, marching and hiking; R41.2 Retrograde amnesia; W01.0XXA Fall on same level from slipping, tripping and stumbling without subsequent striking against object, initial encounter; Z82.49 Family history of ischemic heart disease and other diseases of the circulatory system; Y92.89 Other specified places as the place of occurrence of the external cause; Y99.8 Other external cause status
CPT/HCPCS: 36415; 70450; 70486; 72125; 80053; 85025; 85610; 85730; 90471; 90715; 96374; 96375; J2270; J2405; 97116-GP; 99285-25; G0378

== ENCOUNTER → 2021-04-19 | Outpatient (CLI) | payer OTHER ==
[2021-04-14 11:19] VITALS: BP 99/66
[~2021-04-19] MED LIST: LEVO75TA5 PO; LISI10TA16 PO; PROG200C10 PO
--- NOTE | 2021-04-19 16:17 | KCIC ---
EXAMINATION: CT HEAD/BRAIN WO. TECHNIQUE: Noncontrast axial images of the brain were obtained with coronal and sagittal reconstructi ons. One or more of the following radiation dose reduction techniques was used: automated exposure control , adjustment of mA and/or KV according to patient size, and/or utilization of iterative reconstructio n technique. HISTORY: 65 years Female Reason: SDH follow up. Pt fell 04/13/21. LOC, broken nose,discoloration to both eyes . FINDINGS: There is no intracranial hemorrhage, edema or mass effect seen on this exam. The previously reported trace subdural hematoma is a not definitely identified on the current study. The brain par enchyma appears unremarkable. Size of the ventricles is appropriate. The visualized portions of the orbits and paranasal sinuses appear unremarkable. There is a small the subcutaneous anterior right frontal the hematoma similar to the previous study. IMPRESSION: No acute process. Electronically signed by: Obi Glez MD (04/19/2021 4:14 PM) [id number]
== END ==
LOC: KCIC CT 12:30
PROVIDERS: ATTEND Neurological Surgery
DX: S06.360A Traumatic hemorrhage of cerebrum, unspecified, without loss of consciousness, initial encounter (principal); W19.XXXA Unspecified fall, initial encounter; Y93.89 Activity, other specified; Y92.89 Other specified places as the place of occurrence of the external cause; Y99.8 Other external cause status
CPT/HCPCS: 70450